=== PATIENT | female | born 1945 | race Caucasian/White ===

== ENCOUNTER 2017-01-17 18:47 | Inpatient (IN) | payer MEDICARE, BC ==
[~2017-01-17] VITALS: Ht 157.5 cm; Wt 72.1 kg
[2017-01-17] MEDS ORDERED: TOBRADEX EYE (19:13)
[2017-01-17 19:26] LABS: BASOPHILS # (AUTO) 0.1 K/uL (0.0-8.0); BASOPHILS % (AUTO) 0.7 % (0.0-2.0); EOSINOPHILS # (AUTO) 0.2 K/uL (0.0-0.7); EOSINOPHILS % (AUTO) 2.7 % (0.0-7.0); HEMATOCRIT 41.8 % (37-47); HEMOGLOBIN 13.8 G/DL (12.0-16.0); LYMPHOCYTES # (AUTO) 1.4 K/UL (0.8-4.8); LYMPHOCYTES % (AUTO) 17.4 % (20.5-51.5); MEAN CORPUSCULAR HEMOGLOBIN 29.2 UUG (27.0-31.0); MEAN CORPUSCULAR HGB CONC 33 g/dL (32.0-37.0); MEAN CORPUSCULAR VOLUME 88.2 FL (81.0-99.0); MONOCYTES # (AUTO) 0.7 K/UL (0.1-1.30); MONOCYTES % (AUTO) 8.3 % (0.0-11.0); NEUTROPHILS # (AUTO) 5.4 K/UL (1.8-8.9); NEUTROPHILS % (AUTO) 70.9 % (38.5-71.5); PLATELET COUNT (AUTO) 258 K/UL (150-450); RED BLOOD CELL COUNT(AUTO) 4.74 MIL/UL (4.2-5.4); WHITE BLOOD COUNT (AUTO) 7.8 K/UL (4.0-11.2)
[2017-01-17 19:35] LABS: CARBON DIOXIDE 27 mmol/L (21-32); CHLORIDE 107 mmol/L (98-107); CREATININE 0.7 mg/dL (0.6-1.3); GLUCOSE 98 mg/dL (74-106); UREA NITROGEN, BLOOD 12 mg/dL (7-18)
[2017-01-17 19:37] LABS: ETHANOL < 3 MG/DL (0-0)
[2017-01-17 19:41] LABS: ALANINE AMINOTRANSFERASE 24 U/L (14-59); ALKALINE PHOSPHATASE 65 U/L (50-136); ASPARTATE AMINOTRANSFERASE 29 U/L (15-37); BILIRUBIN,DIRECT 0.1 mg/dL (0.0-0.2); BILIRUBIN,TOTAL 0.6 mg/dL (0.2-1.0); TOTAL PROTEIN, SERUM 8.2 g/dL (6.4-8.2)
[2017-01-17 19:42] LABS: ACETAMINOPHEN < 2.0 ug/mL (10-30)
--- NOTE | 2017-01-17 19:47 | NUR ---
Received report from CHANDANA Hancock. Assumed care of pt at this time. Pt here for medical clearance. Pt from [facility] arrived on a 5150 for danger to self. Pt calm and cooperative at this time. Repositioned to a chair and given crackers. Pt resting in position of comfort for self.
--- NOTE | 2017-01-17 19:48 | NUR ---
Pt denies SI and HI at this time. Pt danger self due to bizarre behavior per hold,
[2017-01-17 20:04] LABS: THYROID STIMULATING HORMONE 0.833 mIU/mL (0.358-3.740)
[2017-01-17] MEDS ORDERED: PANT40TA4 PO (20:46)
[2017-01-17] MEDS ORDERED: ESCI10TA PO (20:46)
[2017-01-17] MEDS ORDERED: DICL2.5D EACHEYE (20:46)
--- NOTE | 2017-01-17 20:51 | NUR ---
Pt medically cleared for admission to behavioral health. Report called to CHANDANA Beauchamp. Preparing to transfer pt to the unit
[2017-01-17] MEDS ORDERED: MAGNESIUM HYDROXIDE 30 ML LIQUID UDC PO PRN (21:45)
[2017-01-17] MEDS ORDERED: LORAZEPAM 1 MG TABLET PO PRN (21:45)
[2017-01-17] MEDS ORDERED: TEMAZEPAM 7.5 MG CAPSULE PO PRN (21:45)
[2017-01-17] MEDS ORDERED: MAG HYDROX/AL HYDROX/SIMETH 30 ML LIQUID UDC PO PRN (21:45)
[2017-01-17 22:08] VITALS: BP 114/72
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
--- NOTE | 2017-01-18 05:00 | NUR ---
pt is now awake. states that she feels the staff is conspiring against her. states that she heard her daughters voice. currently in activity room. will continue to monitor closely.
--- NOTE | 2017-01-18 06:00 | NUR ---
appears calmer, now. slept 5 hours, total. is currently sitting in room. no distress noted.
[2017-01-18 07:30] VITALS: BP 129/83
--- NOTE | 2017-01-18 08:05 | NUR ---
GPS.RN- patient anxious restless pacing going into other patients rooms, difficult to redirect. paranoid and suspicious, believes her daughter is in each room, difficult to redirect from nursing room, patient refusing to leave room posturing while holding front wheel walker, Dr Kaufman notified IM orders received for Zyprexa 5mg IM once and Ativan 1mg Im once
[2017-01-18] MEDS ORDERED: LORAZEPAM 2 MG/1 ML VIAL IM ONE (08:15)
[2017-01-18] MEDS ORDERED: OLANZAPINE 10 MG VIAL IM ONE ×2 (08:15→23:00)
[2017-01-18] MEDS: ESCITALOPRAM OXALATE 10 MG TABLET PO SCH (12:45)
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
[2017-01-18 16:00] VITALS: BP 100/60
[2017-01-18] MEDS: TOBRAMYCIN 0.3% OPHT DROP 5 ML BOTTLE EACHEYE SCH (20:00)
--- NOTE | 2017-01-18 20:00 | NUR ---
EYE DROPS FOR 1999 AND 2099 NOT LOCATED IN [facility] OR ON THE [facility]. CHARGE NURSE NOTIFIED. MEDICATION NOT ADMINISTERED
--- NOTE | 2017-01-18 20:00 | NUR ---
NOTICED RESTLESS AND ANXIOUS, HYPERVERBAL. WANTED TO GO OUT WITH WALKER . TRIED TO DISTRACT THE PATIENT. PATIENT NOTICED MORE RESTLESS. OFFERED ATIVAN 1 MG PO ORDERED. LANCE REFUSED TO TAKE MEDICATION . SHE STATED THAT SHE DOESN'T BELIEVE ANYONE, AND SHE DOES NOT WANT ANY MEDICATION IN HER SYSTEM. PATIENT CALM DOWN . 1:1 SITTER AT [facility] BED SIDE.
[2017-01-18 20:19] VITALS: BP 140/60
--- NOTE | 2017-01-18 20:40 | NUR ---
PATIENT NOTED RESTLESS , AGITATED AND ANXIOUS, SHE WAS SCREAMING AND YELLING. TRIED TO GIVE ORAL MEDICATION. SHE REFUSED AND TRYING TO GET OUT OF THE BED, BECAME COMBATIVE. SECURITY WAS CALLED. PLACED HER BACK TO BED . MD NOTIFIED WITH NEW ORDER FOR IM INJECTION. INJECTION GIVEN ORDERED.
[2017-01-18] MEDS: DICLOFENAC 0.1% OPHT DROP 2.5 ML BOTTLE EACHEYE SCH (21:00)
[2017-01-18] MEDS ORDERED: LORAZEPAM 2 MG/1 ML VIAL IM STA (22:57)
[2017-01-19] MEDS: TOBRAMYCIN 0.3% OPHT DROP 5 ML BOTTLE EACHEYE SCH ×6 (04:00→20:00)
[2017-01-19] MEDS: PANTOPRAZOLE SODIUM 40 MG TABLET.DR PO SCH ×2 (06:33→07:00)
--- NOTE | 2017-01-19 07:01 | NUR ---
PATENT SLEPT FOR 4.15 HRS. HAD BEHAVIORAL ISSUES DURING THE SHIFT. NOW PATIENT IS SLEEPING. 1:1 SITTER AT TH BED SIDE.
[2017-01-19 07:30] VITALS: BP 125/68
[2017-01-19 08:03] LABS: CREATININE 0.8 mg/dL (0.6-1.3); MAGNESIUM 1.9 mg/dL (1.8-2.4); PHOSPHOROUS 4.2 mg/dL (2.5-4.9); POTASSIUM 3.4 mmol/L (3.5-5.1)
[2017-01-19 08:16] LABS: BASOPHILS % (AUTO) 0.6 % (0.0-2.0); EOSINOPHILS # (AUTO) 0.3 K/uL (0.0-0.7); EOSINOPHILS % (AUTO) 4.1 % (0.0-7.0); HEMATOCRIT 39.1 % (37-47); HEMOGLOBIN 13.1 G/DL (12.0-16.0); LYMPHOCYTES # (AUTO) 1.6 K/UL (0.8-4.8); LYMPHOCYTES % (AUTO) 23.7 % (20.5-51.5); MEAN CORPUSCULAR HEMOGLOBIN 29.7 UUG (27.0-31.0); MEAN CORPUSCULAR HGB CONC 34 g/dL (32.0-37.0); MEAN CORPUSCULAR VOLUME 88.6 FL (81.0-99.0); MONOCYTES # (AUTO) 0.6 K/UL (0.1-1.30); MONOCYTES % (AUTO) 8.7 % (0.0-11.0); NEUTROPHILS # (AUTO) 4.3 K/UL (1.8-8.9); NEUTROPHILS % (AUTO) 62.9 % (38.5-71.5); PLATELET COUNT (AUTO) 222 K/UL (150-450); RED BLOOD CELL COUNT(AUTO) 4.41 MIL/UL (4.2-5.4); WHITE BLOOD COUNT (AUTO) 6.8 K/UL (4.0-11.2)
[2017-01-19] MEDS: ARIPIPRAZOLE 5 MG TABLET PO SCH (08:58)
[2017-01-19] MEDS: DICLOFENAC 0.1% OPHT DROP 2.5 ML BOTTLE EACHEYE SCH ×4 (08:58→20:34)
[2017-01-19] MEDS: ESCITALOPRAM OXALATE 10 MG TABLET PO SCH (08:58)
[2017-01-19] MEDS ORDERED: PANTOPRAZOLE SODIUM 40 MG TABLET.DR PO SCH (09:00)
[2017-01-19] MEDS ORDERED: POTASSIUM CHLORIDE 20 MEQ TAB.PRT.SR PO ONE ×2 (10:45→12:00)
[2017-01-19 16:00] VITALS: BP 130/70
--- NOTE | 2017-01-19 17:06 | NUR ---
Pt remains with 1:1 sitter. Easily agitated, aggressive, sarcastic at times. AOX3. Denies pain or discomfort. Able to make most needs known. No combative behavior noted at this time. Refuses all PO medications, states she refuses to take anything because "I don't like the feeling of taking any medications. I want to be in my full mental capacity." Risks and benefits explained. Staff receiving multiple phone calls from daughter inquiring about pt. Pt asked nurse not to divulge any information to anyone about her condition. Pt's request is honored and upheld. Pt's daughter then states she will then go tomorrow (Friday) to court to obtain power of city attorney.
[2017-01-19 20:19] VITALS: BP 132/74
--- NOTE | 2017-01-19 21:42 | NUR ---
Pt received in a chair near the nurses station, anxious, hyperverbal, loud, resistive and uncooperative with care, refused routine Meds-eye drops saying "I get my eye drops two times in the morning and night time" reoriented to time, very argumentative, will continue to monitor closely.
--- NOTE | 2017-01-20 00:02 | NUR ---
AWAKE, ANXIOUS, RESTLESS, LOUD, UNCOOPERATIVE, ASKING FOR THE PHONE, TIME ORIENTATION PROVIDED, ARGUMENTATIVE, AGGRESSIVE, HOSTILE, REFUSING PRN ANTI ANXIETY MEDICATION, REFUSING TO GO TO BED, WILL CONTINUE TO MONITOR.
[2017-01-20] MEDS: TOBRAMYCIN 0.3% OPHT DROP 5 ML BOTTLE EACHEYE SCH ×6 (04:00→20:00)
[2017-01-20] MEDS: PANTOPRAZOLE SODIUM 40 MG TABLET.DR PO SCH (06:16)
[2017-01-20 07:30] VITALS: BP 113/56
[2017-01-20] MEDS: DICLOFENAC 0.1% OPHT DROP 2.5 ML BOTTLE EACHEYE SCH ×4 (08:31→21:00)
[2017-01-20] MEDS: ARIPIPRAZOLE 5 MG TABLET PO SCH (08:31)
[2017-01-20] MEDS: ESCITALOPRAM OXALATE 10 MG TABLET PO SCH (08:31)
[2017-01-20] MEDS: ACETAMINOPHEN 325 MG TABLET PO PRN (09:00)
--- NOTE | 2017-01-20 09:09 | NUR ---
Pt received sitting on ariana chair. Paranoid and delusional. Quite aggressive, easily agitated and sarcastic. Easily irritable. Pt requesting Tylenol at this time for mild lower back pain. While attempting to administer, pt extremely paranoid, believing nurse switched medications, researching the pill, stating she does not believe it is Tylenol and will not take it. States she wants Motrin instead. Continues to refuse shower and requires reinforcement with care. Refuses all PO routine medications. Risks and benefits explained. Pt non receptive to education, ignoring nurse and becomes non-verbal. 1:1 sitter with pt at all times.
--- NOTE | 2017-01-20 11:06 | NUR ---
Pt highly agitated, restless, refusing PO medications. Threatening staff, staff splitting. Remains very sarcastic and verbally abusive. 1:1 sitter with pt at all times. Continues to refuse to sign release of information paperwork to give daughter any information because "you all are liars and you will all lie to my daughter." Paranoid and delusional. Will continue to monitor.
--- NOTE | 2017-01-20 15:02 | NUR ---
Initial discharge instructions: Pt resides at home with her daughter,Katie [[address], [place],[address];[phone]].Per pt,she would like to return home upon discharge.Spoke with pt's daughter, Natali Phoenix [phone] who stated she would like the pt to return home once stable.SW will speak with pt,family,and MD regarding appropriate discharge plans.SW will form a safe and proper discharge.
[2017-01-20 16:22] VITALS: BP 128/62
[2017-01-20 19:26] VITALS: BP 108/66
--- NOTE | 2017-01-20 22:00 | NUR ---
received to care, up in ariana chair, 1; 1 sitter at side, for safety. remains needy and attention seeking. attempts to split staff. firm limits set on behavior. refused all medications offered. as of 2199, she remains awake in bed. will continue to monitor closely.
--- NOTE | 2017-01-20 22:20 | NUR ---
pt is very intrusive, attempting to enter nurses station. pt attempted to redirect her back to her room, but she became resistive, and sat herself on the floor. staff assisted her up from the floor, and back to her room.
--- NOTE | 2017-01-20 22:41 | NUR ---
pt remains restless, and intrusive. attempting to enter nurses station. difficult to redirect. PRN restoril was given, with much encouragement.
--- NOTE | 2017-01-20 23:30 | NUR ---
appears to be asleep. no distress noted.
[2017-01-21] MEDS: TOBRAMYCIN 0.3% OPHT DROP 5 ML BOTTLE EACHEYE SCH ×6 (04:00→20:00)
--- NOTE | 2017-01-21 06:00 | NUR ---
slept well last night, 8.5 hours, total. continues to sleep, but easy to awaken. no distress noted. will continue to monitor closely.
[2017-01-21] MEDS: PANTOPRAZOLE SODIUM 40 MG TABLET.DR PO SCH (06:24)
[2017-01-21 07:30] VITALS: BP 125/79
[2017-01-21] MEDS: DICLOFENAC 0.1% OPHT DROP 2.5 ML BOTTLE EACHEYE SCH ×4 (08:58→21:00)
[2017-01-21] MEDS: ESCITALOPRAM OXALATE 10 MG TABLET PO SCH (08:58)
[2017-01-21] MEDS: ARIPIPRAZOLE 5 MG TABLET PO SCH (09:00)
[2017-01-21 16:55] VITALS: BP 128/79
[2017-01-21 20:23] VITALS: BP 123/51
[2017-01-21] MEDS: ACETAMINOPHEN 325 MG TABLET PO PRN (21:09)
--- NOTE | 2017-01-21 22:00 | NUR ---
received to care, up in the wheel chair, 1;1 sitter at side, for safety. remains manipulative, and staff splitting. firm limits set on behavior. refused all medications offered. she requested tylenol for lower back pain, but when it was offered, as she requested, still in the package, she stated that she would not take it, as it is "counterfeit medicine" currently lying in bed, awake. no distress noted. will continue to monitor closely.
--- NOTE | 2017-01-22 01:00 | NUR ---
remains awake. very manipulative with sitter. attempts to split staff. yells out intermittently. asks to go to the bathroom, every few minutes. difficult to redirect. PRN medications were offered, but she continues to refuse. continually attempts to climb out of bed. placed in the ariana chair, for safety.
--- NOTE | 2017-01-22 02:00 | NUR ---
continues to yell. states that since she is awake, everybody else should be, too. remains in ariana chair. taken to activity room, to prevent disrupting other patients. sitter remains at side.
[2017-01-22] MEDS: TOBRAMYCIN 0.3% OPHT DROP 5 ML BOTTLE EACHEYE SCH ×4 (04:00→12:00)
--- NOTE | 2017-01-22 04:00 | NUR ---
remains awake, in activity room. continues to be verbally abusive. firm limits set. will continue to monitor closely.
--- NOTE | 2017-01-22 06:00 | NUR ---
slept 1 hour, total.
[2017-01-22] MEDS: PANTOPRAZOLE SODIUM 40 MG TABLET.DR PO SCH (06:55)
[2017-01-22 07:30] VITALS: BP 115/54
[2017-01-22] MEDS: ESCITALOPRAM OXALATE 10 MG TABLET PO SCH (09:00)
[2017-01-22] MEDS: DICLOFENAC 0.1% OPHT DROP 2.5 ML BOTTLE EACHEYE SCH ×2 (09:00→12:27)
[2017-01-22] MEDS: ARIPIPRAZOLE 5 MG TABLET PO SCH (09:15)
--- NOTE | 2017-01-22 10:33 | NUR ---
DC Note: Patient will be discharged today back home [[address] [place], [address]; [phone]] via private transportation at 1:00 pm. Patient will be picked up by her daughter, Natali Phoenix [phone]. Spoke with Natali who is aware and agreeable with discharge plans. Patient is aware and agreeable with discharge plans. Patient will follow-up with ([employer] [facility]) [[address], [place], [place] [address]; ] and was referred to Mental Health [facility] [[address] [place] [address]; ], [facility] [[address] [place] [address]; ], [facility] [[address] [place] [address]; ], and the [facility] for outpatient mental health services.
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
== END 2017-01-22 13:35 | disposition home or self-care (01) | DRG 885 ==
LOC: ER 18:53 → GPS 21:04
PROVIDERS: ADMIT Psychiatry & Neurology Psychiatry; ATTEND Internal Medicine
DX: F33.3 Major depressive disorder, recurrent, severe with psychotic symptoms (principal); Z91.14 Patient's other noncompliance with medication regimen; G89.29 Other chronic pain; Z98.890 Other specified postprocedural states; H10.30 Unspecified acute conjunctivitis, unspecified eye; Z79.899 Other long term (current) drug therapy; E87.6 Hypokalemia; E78.5 Hyperlipidemia, unspecified; M54.9 Dorsalgia, unspecified; H40.9 Unspecified glaucoma
CPT/HCPCS: 36415; 83735; 84100; 84443; 85025; 97116; 97161; 97530; A4663; G0480; G0480-TC; J2060; J2358